=== PATIENT | female | born 1960 | race Caucasian/White ===

== ENCOUNTER 2022-01-08 06:52 | Day surgery (SDC) | payer OTHER ==
[2021-12-23 11:34] VITALS: BMI 33.6
[2022-01-08] MEDS ORDERED: LIDOCAINE HCL 2% (20ML MULTI-DOSE VIAL) ONE (07:15)
[2022-01-08 07:43] VITALS: RESP 18
[2022-01-08] MEDS ORDERED: MIDAZOLAM HCL 2 MG/2 ML SINGLE DOSE VIAL ONE (08:29)
[2022-01-08] MEDS ORDERED: FENTANYL CITRATE/PF 50 MCG/ML VIAL ONE (08:29)
[2022-01-08] MEDS ORDERED: PROPOFOL 20 ML ONE (08:43)
[2022-01-08 09:30] VITALS: BP 111/62; TEMP 97.8
[2022-01-08] MEDS ORDERED: ONDANSETRON 4 MG/2 ML VIAL ONE (09:41)
[2022-01-08] MEDS ORDERED: KETOROLAC TROMETHAMINE 30 MG/1 ML VIAL ONE (09:41)
[2022-01-08] MEDS ORDERED: DEXAMETHASONE SOD PHOSPHATE 4 MG/1 ML VIAL ONE (09:41)
[2022-01-08 09:55] VITALS: PULSE 88
== END 2022-01-08 10:00 | disposition home or self-care (01) ==
LOC: FASU 06:52
PROVIDERS: ATTEND Orthopaedic Surgery Hand Surgery
PROC: 01N50ZZ Release Median Nerve, Open Approach (ICD-10-PCS; principal; 2022-01-08 08:52)
DX: G56.02 Carpal tunnel syndrome, left upper limb (principal)